=== PATIENT | male | born 1990 | race Caucasian/White ===

== ENCOUNTER 2024-04-13 06:06 | Emergency (ER) | payer SELFPAY ==
[~2024-04-13] VITALS: Ht 167.6 cm; Wt 73.0 kg
[2024-04-13 06:13] VITALS: O2SAT 100
[2024-04-13 07:14] LABS: BASOPHILS % 0.7 % (0.0-2.0); CLARITY URINE TURBID (CLEAR); COLOR URINE YELLOW (YELLOW); GLUCOSE URINE NEGATIVE (NEGATIVE); HEMATOCRIT. 42.2 % (42.0-52.0); HEMOGLOBIN. 14.4 g/dL (14.0-18.0); KETONES URINE NEGATIVE (NEGATIVE); LEUKOCYTE ESTERASE URINE NEGATIVE (NEGATIVE); LYMPHOCYTES % 24.6 % (20.0-50.0); MEAN CORPUSCULAR HEMOGLOBIN 31.4 pg (28.0-32.0); MEAN CORPUSCULAR HGB CONC 34.2 g/dL (31.0-37.0); MEAN CORPUSCULAR VOLUME 91.8 fL (80.0-94.0); MEAN PLATELET VOLUME 6.7 fl (7.4-10.4); MONOCYTES % 11.6 % (2.0-8.0); NEUTROPHILS % 57.1 % (40.0-76.0); NITRITE URINE NEGATIVE (NEGATIVE); OCCULT BLOOD URINE NEGATIVE (NEGATIVE); PH URINE 6.5 (4.5-8.0); PLATELET 333 x1000/uL (130-400); PROTEIN URINE 2+ (NEGATIVE); SPECIFIC GRAVITY URINE 1.025 (1.005-1.030); WHITE BLOOD COUNT 5.9 x1000/uL (4.5-11.0)
[2024-04-13 07:16] LABS: CHLORIDE 107 mEq/L (98-107); POTASSIUM 4.1 mEq/L (3.5-5.1); SODIUM 142 mEq/L (136-145)
[2024-04-13 07:17] LABS: CARBON DIOXIDE 27 mEq/L (21-32)
[2024-04-13 07:23] LABS: GLUCOSE 124 mg/dL (70-105); UREA NITROGEN BLOOD 8 mg/dL (9-23)
[2024-04-13 07:24] LABS: ACETAMINOPHEN < 2 ug/mL (10-30)
[2024-04-13 07:27] LABS: SQUAMOUS EPITHELIAL CELL URINE NONE SEEN /lpf (RARE/1+); WBC URINE 0-2 /hpf (0-2)
[2024-04-13 07:28] LABS: *AMPHETAMINES SCREEN URINE PRESUMPTIVE POSITIVE (NEGATIVE); *BARBITURATES SCREEN URINE NEGATIVE (NEGATIVE); *BENZODIAZEPINES SCREEN URINE NEGATIVE (NEGATIVE); AMORPHOUS SEDIMENT URINE 2+ /lpf; BACTERIA URINE 1+; YEAST URINE NONE SEEN
[2024-04-13 07:29] LABS: *COCAINE SCREEN URINE NEGATIVE (NEGATIVE); CANNABINOID URINE SCREEN NEGATIVE (NEGATIVE); ECSTASY MDMA SCREEN URINE CONF.TEST INDICATED (NEGATIVE); METHADONE URINE SCREEN NEGATIVE (NEGATIVE); OPIATES URINE SCREEN NEGATIVE (NEGATIVE); PHENCYCLIDINE URINE SCREEN NEGATIVE (NEGATIVE); RBC URINE 0-2 /hpf (0-2)
[2024-04-13 07:38] LABS: ETHANOL BLOOD < 10 mg/dL (<10)
[2024-04-13 18:02] VITALS: BP 135/81; PULSE 84; RESP 17; TEMP 36.89184; O2SAT 100
== END 2024-04-13 19:14 ==
LOC: ER 06:06
DX: F25.9 Schizoaffective disorder, unspecified (principal); F15.10 Other stimulant abuse, uncomplicated; F41.9 Anxiety disorder, unspecified; Z00.8 Encounter for other general examination; Z20.822 Contact with and (suspected) exposure to COVID-19
CPT/HCPCS: 36415; 80048; 80305; 80307; 80320; 80329; 81003; 85025; 87426; 99285; G0480